=== PATIENT | female | born 1970 | race Caucasian/White ===

== ENCOUNTER 2019-09-08 20:48 | Emergency (ER) | payer MEDICARE, MEDICAID, SELFPAY ==
[2019-09-08 20:59] VITALS: BP 120/80; PULSE 100; RESP 18; TEMP 36.9; O2SAT 100
--- NOTE | 2019-09-08 21:20 | PC.NURSE ---
Patient left ED without seeing provider.
== END 2019-09-08 21:20 | disposition left against medical advice (07) ==
DX: Z53.21 Procedure and treatment not carried out due to patient leaving prior to being seen by health care provider (principal)
CPT/HCPCS: 99199